=== PATIENT | female | born 1980 | race Caucasian/White ===

== ENCOUNTER 2021-06-25 16:51 | Emergency (ER) | payer OTHER ==
[2021-06-25 17:55] LABS: HEMOGLOBIN 14.6 gm/dl (12.3-15.3); RED BLOOD COUNT 4.96 M/UL (4.00-5.10); WHITE BLOOD COUNT 10.5 K/UL (4.5-11.0)
[2021-06-25 18:16] LABS: BUN/CREATININE RATIO 22 (0-10)
[2021-06-26] MEDS ORDERED: PHENERGAN 25 MG25 M1 PO (02:44)
== END 2021-06-26 02:55 | disposition home or self-care (01) ==
LOC: ER1 16:51
PROVIDERS: Physician Assistant Medical
DX: K52.9 Noninfective gastroenteritis and colitis, unspecified (principal); I10 Essential (primary) hypertension; K21.9 Gastro-esophageal reflux disease without esophagitis; Z88.1 Allergy status to other antibiotic agents; Z88.8 Allergy status to other drugs, medicaments and biological substances
CPT/HCPCS: 80053; 81001; 83690; 84703; 85025; 96374; 99284; J2405; J7030; Q9967